=== PATIENT | female | born 1975 | race Two or more races ===

== ENCOUNTER 2023-02-15 21:37 | Emergency (ER) | payer OTHER, SELFPAY ==
[2023-02-15 21:42] VITALS: BP 167/90; PULSE 80; RESP 20; TEMP 37.1; O2SAT 99; BMI 29.3
[2023-02-15 22:00] LABS: Bilirubin Urine NEGATIVE (NEGATIVE); Blood Urine LARGE (NEGATIVE); Clarity Urine CLEAR (CLEAR); Color Urine RED (YELLOW); Glucose Urine UA NEGATIVE (NEGATIVE); Ketones Urine NEGATIVE (NEGATIVE); Leukocyte Esterase Urine NEGATIVE (NEGATIVE); Nitrite Urine NEGATIVE (NEGATIVE); Protein Urine 30 mg/dL (NEG/TRACE); Specific Gravity Urine 1.015 (1.005-1.025); Urobilinogen Urine 0.2 EU/dL (0.2-1.0)
[2023-02-15 22:01] LABS: Urine Microscopic Indicated YES
[2023-02-15 22:06] LABS: Bacteria Urine NONE SEEN #/HPF (NONE SEEN); Cast Seen? NONE SEEN #/LPF (NONE SEEN); Crystals Seen? None Seen #/HPF (None Seen); Mucus Urine NONE SEEN (NONE SEEN); RBC Urine >100 #/HPF (0-2); Squamous Epithelial Cell Urine NONE SEEN #/LPF (NONE/RARE); Urine Culture Indicated NO; WBC Urine 0-2 #/HPF (NONE SEEN)
--- NOTE | 2023-02-15 22:13 | CT_ITS ---
[facility] [id number] Patient Name: CHANEL LERNER MRN: [id number] date: 1975 Sex: F Assigned Patient Location: ER Current Patient Location: ER Accession/Order Number: [id number] Exam Date: 02/15/2023 22:24 Report Date: 02/15/2023 22:52 At the request of: LUCINA ASENCIO Procedure: CT abdomen pelvis wo con EXAMINATION: CT ABDOMEN AND PELVIS WITHOUT IV CONTRAST CLINICAL HISTORY: Right flank pain and hematuria TECHNIQUE: Non-IV contrast imaging of the abdomen and pelvis was performed using standard technique, scanning from just above the dome of the diaphragm to the symphysis pubis. Unenhanced imaging is limited for the evaluation of some intra-abdominal and pelvic pathology. All CT scans at this facility use dose modulation, iterative reconstruction, and/or weight based dosing when appropriate to reduce radiation dose to as low as reasonably achievable. Contrast: IV: None COMPARISON: None. RESULT: Abdomen / Pelvis: Liver: Unremarkable. Biliary: The gallbladder is unremarkable. Spleen: No splenomegaly. Pancreas: Unremarkable. Adrenals: Normal. Kidneys: 8mm proximal right ureteral obstructing calculus with mild hydronephrosis. Several other bilateral nonobstructing renal calculi, measuring up to 6 mm. GI Tract: No bowel dilation. Normal appendix. There is diverticulosis. No changes of diverticulitis. Lymph Nodes: No lymphadenopathy. Mesentery/peritoneum: No ascites. Retroperitoneum: No mass. Vasculature: No abdominal aortic or iliac artery aneurysm. Pelvis: No mass or ascites. Urinary bladder is unremarkable. Bones/Soft Tissues: Prior postoperative changes hernia repair. Lower thorax: Unremarkable. CT/CT abdomen pelvis wo con IMPRESSION: 8 mm proximal right ureteral obstructing calculus with mild hydronephrosis. Multiple other bilateral nonobstructing renal calculi. Electronically authenticated by: LEANDRO LIAO Date: 02/15/2023 22:52
[2023-02-15] MEDS: 0.9 % SODIUM CHLORIDE 1,000 ML 999 ML IV (22:53)
[2023-02-15] MEDS: KETOROLAC TROMETHAMINE 30 MG/ML VIAL IVP (22:54)
[2023-02-15] MEDS: ORPHENADRINE 60 MG/ 2 ML VIAL IV (22:54)
[2023-02-15 23:12] LABS: Anion Gap 9.9; Calcium 9.7 mg/dL (8.5-10.1); Carbon Dioxide 28.2 mmol/L (21.0-32.0); Chloride 105 mmol/L (98-107); Estimated GFR (African America >60 (>=60); Estimated GFR (Non-African Ame >60 (>=60); Glucose 116 mg/dL (74-106); Potassium 4.1 mmol/L (3.5-5.1); Sodium 139 mmol/L (136-145)
[2023-02-15 23:16] LABS: Basophils Absolute Auto 0.1 10^3/uL (0.0-0.1); Basophils Percent Auto 0.7 % (0.2-2.0); Eosinophils Absolute Auto 0.2 10^3/uL (0.0-0.7); Eosinophils Percent Auto 2.4 % (0.9-7.0); Hematocrit 38.8 % (36.0-48.0); Hemoglobin 13.1 g/dL (12.0-16.0); Immature Granulocytes Abs Auto 0.03 10^3/uL (0.00-0.03); Immature Granulocytes Pct Auto 0.4 % (0.0-0.5); Lymphocytes Absolute Auto 1.2 10^3/uL (1.2-3.8); Lymphocytes Percent Auto 15.9 % (20.5-60.0); Mean Corpuscular HGB Conc 33.8 g/dL (29.9-35.2); Mean Corpuscular Hemoglobin 31.1 pg (26.7-34.0); Mean Corpuscular Volume 92.2 fL (81.0-99.0); Mean Platelet Volume 11.3 fL (9.5-13.5); Monocytes Absolute Auto 0.6 10^3/uL (0.3-0.8); Monocytes Percent Auto 8.4 % (1.7-12.0); Neutrophils Absolute Auto 5.4 10^3/uL (1.4-6.5); Neutrophils Percent Auto 72.2 % (43.0-75.0); Platelet Count 208 10^3/uL (150-450); Red Blood Count 4.21 10^6/uL (4.20-5.40); Red Cell Distribution Width 12.2 % (11.0-15.0); White Blood Count 7.5 10^3/uL (4.0-11.0)
--- NOTE | 2023-02-15 23:38 | ED.FEMALEGU1 ---
HPI - Female Genitourinary General Chief complaint: Urogenital-Female Stated complaint: FLANK PAIN Time Seen by Provider: 02/15/23 21:46 Source: patient Mode of arrival: walk-in Limitations: no limitations History of Present Illness HPI Narrative: past history of kidney stones. presents with right CVA pain for past 3 days. mild nausea. No fever or dysuria. Pain not relieved with motrin. Related Data Home Medications Medication Instructions Recorded Confirmed No Known Home Medications 02/15/23 02/15/23 Allergies Allergy/AdvReac Type Severity Reaction Status Date / Time No Known Drug Allergies Allergy Verified 02/15/23 21:46 Review of Systems ROS Status of ROS 10 or more systems reviewed and unremarkable except as noted in history and below [facility] Social History Smoking status: Never smoker Exam Constitutional Vital Signs, click to edit/add: Last Vital Signs Temp 98.7 F 02/15/23 21:42 Pulse 80 02/15/23 21:42 Resp 20 02/15/23 21:42 BP 167/90 H 02/15/23 21:42 Pulse Ox 99 02/15/23 21:42 O2 Del Method Room Air 02/15/23 21:42 Common normals: no apparent distress, average body habitus, oriented x3, no limitations, healthy appearing and alert Eye Common normals: EOMs intact bilaterally and conjunctivae normal Respiratory Common normals: normal respiratory effort, no retractions, no use of accessory muscles and clear to auscultation bilaterally Cardio Common normals: regular rate, regular rhythm, S1 normal heart sound and S2 normal heart sound GI Common normals: Normal to inspection, nondistended, normoactive bowel sounds present, soft to palpation and non-tender Back & Pelvis Other: right CVA tenderness Extremity Common normals: normal to inspection Neuro Common normals: oriented x3, CN's II-XII intact bilaterally, moves all extremities and no focal motor deficits Psych Appearance: grossly normal Course Vital Signs Vital signs: Vital Signs Temperature 98.7 F 02/15/23 21:42 Pulse Rate 80 02/15/23 21:42 Respiratory Rate 20 02/15/23 21:42 Blood Pressure 167/90 H 02/15/23 21:42 Pulse Oximetry 99 02/15/23 21:42 Oxygen Delivery Method Room Air 02/15/23 21:42 Temperature 98.7 F 02/15/23 21:42 Pulse Rate 80 02/15/23 21:42 Respiratory Rate 20 02/15/23 21:42 Blood Pressure 167/90 H 02/15/23 21:42 Pulse Oximetry 99 02/15/23 21:42 Oxygen Delivery Method Room Air 02/15/23 21:42 MDM - Female Genitourinary MDM Narrative Medical decision making narrative: presents with right CVA pain for past 3 days. found to have proximal 8mm stone. urine with hematuria, no infection. Pain controlled with Toradol and Norflex. Given dose of flomax and discharged home to follow up with urology Lab Data Labs: Lab Results 02/15/23 02/15/23 Range/Units 21:50 22:40 WBC 7.5 (4.0-11.0) 10^3/uL RBC 4.21 (4.20-5.40) 10^6/uL Hgb 13.1 (12.0-16.0) g/dL Hct 38.8 (36.0-48.0) % MCV 92.2 (81.0-99.0) fL MCH 31.1 (26.7-34.0) pg MCHC 33.8 (29.9-35.2) g/dL RDW 12.2 (11.0-15.0) % Plt Count 208 (150-450) 10^3/uL MPV 11.3 (9.5-13.5) fL Neut % (Auto) 72.2 (43.0-75.0) % Lymph % (Auto) 15.9 L (20.5-60.0) % [place] % (Auto) 8.4 (1.7-12.0) % Eos % (Auto) 2.4 (0.9-7.0) % Baso % (Auto) 0.7 (0.2-2.0) % Neut # (Auto) 5.4 (1.4-6.5) 10^3/uL Lymph # (Auto) 1.2 (1.2-3.8) 10^3/uL [place] # (Auto) 0.6 (0.3-0.8) 10^3/uL Eos # (Auto) 0.2 (0.0-0.7) 10^3/uL Baso # (Auto) 0.1 (0.0-0.1) 10^3/uL Abs Immat Gran (auto) 0.03 (0.00-0.03) 10^3/uL Imm/Tot Granulo (auto) 0.4 (0.0-0.5) % Sodium 139 (136-145) mmol/L Potassium 4.1 (3.5-5.1) mmol/L Chloride 105 (98-107) mmol/L Carbon Dioxide 28.2 (21.0-32.0) mmol/L Anion Gap 9.9 BUN 17.0 (7.0-18.0) mg/dL Creatinine 0.85 (0.55-1.02) mg/dL Est GFR ( Amer) >60 (>=60) Est GFR (Non-Af Amer) >60 (>=60) BUN/Creatinine Ratio 20.0 Glucose 116 H (74-106) mg/dL Calcium 9.7 (8.5-10.1) mg/dL Urine Color Red A (YELLOW) Urine Clarity Clear (CLEAR) Urine pH 7.0 (5.0-9.0) Ur Specific [place] 1.015 (1.005-1.025) Urine Protein 30 A (NEG/TRACE) mg/dL Urine Glucose (UA) Negative (NEGATIVE) mg/dL Urine Ketones Negative (NEGATIVE) mg/dL Urine Occult Blood Large A (NEGATIVE) Urine Nitrite Negative (NEGATIVE) Urine Bilirubin Negative (NEGATIVE) Urine Urobilinogen 0.2 (0.2-1.0) EU/dL Ur Leukocyte Esterase Negative (NEGATIVE) Urine RBC >100 A (0-2) #/HPF Urine WBC 0-2 A (NONE SEEN) #/HPF Ur Squamous Epith Cells None seen (NONE/RARE) #/LPF Urine Crystals None seen (None Seen) #/HPF Urine Bacteria None seen (NONE SEEN) #/HPF Urine Casts None seen (NONE SEEN) #/LPF Urine Mucus None seen (NONE SEEN) Ur Culture Indicated? No Imaging Data CT scan - abdomen: Radiologist's impression: At the request of: LUCINA ASENCIO Procedure: CT abdomen pelvis wo con EXAMINATION: CT ABDOMEN AND PELVIS WITHOUT IV CONTRAST CLINICAL HISTORY: Right flank pain and hematuria TECHNIQUE: Non-IV contrast imaging of the abdomen and pelvis was performed using standard technique, scanning from just above the dome of the diaphragm to the symphysis pubis. Unenhanced imaging is limited for the evaluation of some intra-abdominal and pelvic pathology. All CT scans at this facility use dose modulation, iterative reconstruction, and/or weight based dosing when appropriate to reduce radiation dose to as low as reasonably achievable. Contrast: IV: None COMPARISON: None. RESULT: Abdomen / Pelvis: Liver: Unremarkable. Biliary: The gallbladder is unremarkable. Spleen: No splenomegaly. Pancreas: Unremarkable. Adrenals: Normal. Kidneys: 8mm proximal right ureteral obstructing calculus with mild hydronephrosis. Several other bilateral nonobstructing renal calculi, measuring up to 6 mm. GI Tract: No bowel dilation. Normal appendix. There is diverticulosis. No changes of diverticulitis. Lymph Nodes: No lymphadenopathy. Mesentery/peritoneum: No ascites. Retroperitoneum: No mass. Vasculature: No abdominal aortic or iliac artery aneurysm. Pelvis: No mass or ascites. Urinary bladder is unremarkable. Bones/Soft Tissues: Prior postoperative changes hernia repair. Lower thorax: Unremarkable. CT/CT abdomen pelvis wo con IMPRESSION: 8 mm proximal right ureteral obstructing calculus with mild hydronephrosis. Multiple other bilateral nonobstructing renal calculi. Discharge Plan Discharge Chief Complaint: Urogenital-Female Clinical Impression: Kidney stone Prescriptions / Home Meds: No Action No Known Home Medications Instructions: Kidney Stones (ED) Additional Instructions: drink plenty of fluids. Follow up with your urologist in the next few days. Return if fever or pain not controlled Referrals: Alfredo Perrin MD [Primary Care Provider] - 1 week
[2023-02-16] MEDS: KETOROLAC TROMETHAMINE 10 MG TABLET PO (00:13)
[2023-02-16] MEDS: TAMSULOSIN HCL 0.4 MG CAPSULE PO (00:13)
== END 2023-02-16 00:31 | disposition home or self-care (01) ==
PROVIDERS: Emergency Provider Internal Medicine; PCP Family Medicine
DX: N13.2 Hydronephrosis with renal and ureteral calculous obstruction (principal); Z87.442 Personal history of urinary calculi
CPT/HCPCS: 36415; 74176; 80048; 81001; 85025; 96374; 96375; 99284

== ENCOUNTER 2023-11-15 07:34 | Outpatient (OUT) | payer OTHER, SELFPAY ==
--- OUTSIDE RECORDS SUMMARY | 2023-11-15 07:36 | XMS_ITS | CCD ---
Author Organization [facility] Care Team Providers Care Technician Test Systems Name Role Phone Dion Aguilar Unavailable Unavailable Dion Aguilar Unavailable Unavailable Dion Aguilar Unavailable Unavailable NONE, XXXX Unavailable Unavailable AIDA, DR BETANCOURT Attending Unavailable JOÃOY, DR BETANCOURT Consulting Unavailable JOÃOY, DR BETANCOURT Primary Care Unavailable HOY, DR BETANCOURT Admitting Unavailable HOY, DR BETANCOURT Consulting Unavailable AIDA, DR BETANCOURT Primary Care Unavailable JOÃOY, DR BETANCOURT Admitting Unavailable AIDA, DR BETANCOURT Attending Unavailable AIDA, DR BETANCOURT Consulting Unavailable AIDA, DR BETANCOURT Primary Care Unavailable HOY, DR BETANCOURT Admitting Unavailable AIDA, DR BETANCOURT Attending Unavailable Asia Perrin MD Primary Care Provider [phone] ASHUTOSH HARVEY Admitting Unavailable ASHUTOSH HARVEY Attending Unavailable ASHUTOSH HARVEY Referring Unavailable ASIA PERRIN Primary Care Unavailable ASHUTOSH HARVEY Attending Unavailable ASHUTOSH HARVEY Referring Unavailable ASIA PERRIN Primary Care Unavailable CEHR CALDERON Attending Unavailable ASIA PERRIN Primary Care Unavailable Allergies Allergy Classification Reported Allergen(s) Allergy Type Date of Onset Reaction(s) Facility (1 source) No Known Medication Allergies; Translations: [No Known Medication Allergies] Propensity to adverse reactions (disorder) [facility] Repository Medications Current Medications Medication Drug Class(es) Dates Sig (Normalized) Sig (Original) acetaminophen 325 mg / HYDROcodone bitartrate 5 mg oral tablet (4 sources) Opioid Agonist Start: 02-17-2023 HYDROcodone-acetami nophen (NORCO) 5-325 mg per tablet Indications: Kidney stone Take 1 tablet by mouth every 6 (six) hours as needed for pain for up to 20 doses. Max Daily Amount: 4 tablets 20 tablet 0 02/17/2023 Active ketorolac tromethamine 10 mg oral tablet (4 sources) Nonsteroidal Anti-inflammatory Drug, Cyclooxygenase Inhibitor Start: 02-16-2023 take 1 tablet by mouth every six hours as needed for pain ketorolac (TORADOL) 10 mg tablet Take 1 tablet (10 mg total) by mouth every 6 (six) hours as needed for pain. 0 02/16/2023 Active ondansetron 4 mg disintegrating oral tablet (4 sources) Serotonin-3 Receptor Antagonist Start: 02-17-2023 ondansetron ODT (ZOFRAN ODT) 4 mg disintegrating tablet Indications: Kidney stone Dissolve 1 tablet (4 mg total) on tongue every 8 (eight) hours as needed for nausea or vomiting. 20 tablet 0 02/17/2023 Active tamsulosin hydrochloride 0.4 mg oral capsule (4 sources) alpha-Adrenergic Zana Start: 02-17-2023 End: 03-19-2023 take 1 capsule by mouth once daily tamsulosin (FLOMAX) 0.4 mg capsule Indications: Kidney stone TAKE 1 CAPSULE BY MOUTH NIGHTLY FOR 30 DAYS. 30 capsule 0 03/17/2023 Active Problems Active Problems Problem Classification Problem Date Documented Da te Episodic/Chronic Unclassified (3 sources) CONTACT W/AND (SUSP) EXPOS COVID-19; Translations: [CONTACT W/AND (SUSP) EXPOS COVID-19] Onset: 01-01-2021 Viral infection (1 source) COVID-19; Translations: [COVID-19] Onset: 10-15-2021 Past or Other Problems Problem Classification Problem Date Documented Da te Episodic/Chronic Calculus of urinary tract (7 sources) Kidney stone; Translations: [Calculus of kidney] Onset: 08-18-2020 03-01-2023 Episodic Other upper respiratory infections (1 source) Acute recurrent frontal sinusitis; Translations: [ACUTE RECURRENT FRONTAL SINUSITIS] Onset: 03-19-2021 Episodic Unclassified (1 source) CONTACT W/AND (SUSP) EXPOS COVID-19; Translations: [CONTACT W/AND (SUSP) EXPOS COVID-19] Onset: 10-14-2021 Results Test Name Value Interpretation Reference Range Facility FL FLUOROSCOPY UP TO 1 HOURo n 03-17-2023 FL FLUOROSCOPY UP TO 1 HOUR FL FLUOROSCOPY UP TO 1 HOUR History: Nephrolithiasis. Right ureteroscopy, laser lithotripsy and ureteral stent insertion Exam/Technique: This dictation is to confirm the use of intraoperative fluoroscopy by the primary service. Total fluoro time: 11 seconds , 4.6 mGy air Kerma radiation dose and 4 images No radiologist was present during the procedure. IMPRESSION: Please refer to the operative note for clinical correlation. Finalized by Kassidy Phillips MD on 03/17/2023 4:17 PM Normal [facility] URINE CULTUREon 02-17-2023 Bacteria identified Cx Nom (U) CULTURE RESULTS >100,000 ORGANISMS/ML NORMAL UROGENITAL ARINA Normal [facility] Comment on above: Performed By: #### 6 30-4 #### [facility] ([id number]) [address] [place] [address] [address] [place] [address] Covid-19 PCR (CVDTBH)on 10-04 SARS-CoV-2 (COVID-19) RNA JAVIER+probe Ql (Unsp spec) Detected Critically abnormal NOT DETECTED The [facility] Comment on above: Result Comment: This test is not yet approved or cleared by the [place] FDA. When there are no FDA-approved or cleared tests available, and other criteria are met, FDA can make tests available under an emergency access mechanism called an Emergency Use Authorization (EUA). The EUA for this test is supported by the [place] of Health and Human Service's (HHS's) declaration that circumstances exist to justify the emergency use of in vitro diagnostics for the detection and/or diagnosis of the virus that causes COVID-19. This EUA will remain in effect (meaning this test can be used) for the duration of the COVID-19 declaration justifying emergency of IVDs, unless it is terminated or revoked by FDA (after which the test may no longer be used). Performed By: #### C VDTBH #### [facility] [address] [place] [address] Dr. Masha Ye Covid-19 PCR (CVDTBH)on 03-06 SARS-CoV-2 (COVID-19) RNA JAVIER+probe Ql (Unsp spec) Detected Critically abnormal NOT DETECTED The [facility] Comment on above: Result Comment: This test is not yet approved or cleared by the [place] FDA. When there are no FDA-approved or cleared tests available, and other criteria are met, FDA can make tests available under an emergency access mechanism called an Emergency Use Authorization (EUA). The EUA for this test is supported by the [employer] of Health and Human Service's (HHS's) declaration that circumstances exist to justify the emergency use of in vitro diagnostics for the detection and/or diagnosis of the virus that causes COVID-19. This EUA will remain in effect (meaning this test can be used) for the duration of the COVID-19 declaration justifying emergency of IVDs, unless it is terminated or revoked by FDA (after which the test may no longer be used). Performed By: #### C VDTBH #### [facility] [address] [place] [address] Dr. Masha Ye INFLUENZA A AND B AGon 03-17 INFLUENZA A AG Negative Normal NEGATIVE SEE COMMENT [facility] Comment on above: Performed By: #### I NFLUAB #### [facility] [address] [place] [address] Dr. Masha Ye INFLUENZA B AG Negative Normal NEGATIVE SEE COMMENT [facility] Comment on above: Performed By: #### I NFLUAB #### [facility] [address] [place] [address] Dr. Masha Ye INTERNAL CONTROLS Within Normal Limits Normal Wi thin Normal Limits [facility] Comment on above: Performed By: #### I NFLUAB #### [facility] [address] [place] [address] Dr. Masha Ye Covid-19 PCR ([facility])on 12-05 SARS-CoV-2 (COVID-19) RNA JAVIER+probe Ql (Unsp spec) Not detected Normal NOT DETECTED [facility] Comment on above: Result Comment: This test is not yet approved or cleared by the [place] FDA. When there are no FDA-approved or cleared tests available, and other criteria are met, FDA can make tests available under an emergency access mechanism called an Emergency Use Authorization (EUA). The EUA for this test is supported by the [employer] of Health and Human Service's (HHS's) declaration that circumstances exist to justify the emergency use of in vitro diagnostics for the detection and/or diagnosis of the virus that causes COVID-19. This EUA will remain in effect (meaning this test can be used) for the duration of the COVID-19 declaration justifying emergency of IVDs, unless it is terminated or revoked by FDA (after which the test may no longer be used). When diagnostic testing is negative, the possibility of a false negative should be considered in the context of a patient's recent exposures and the presence of clinical signs and symptoms consistent with SARS-CoV-2. Performed By: #### C VDTB #### [facility] [address] [place] [address] Dr. Masha Ye SYMPTOMATIC COVID-19 ANTIGEN on 12-28-2020 EUA Statement SEE BELOW Normal [facility] Comment on above: Result Comment: This test has not been FDA cleared or approved, but has been authorized by the FDA under an Emergency Use Authorization (EUA) for use by authorized laboratories certified under CLIA that meet the requirements to perform moderate or high complexity testing. This test has been authorized only for the detection of proteins from SARS-CoV-2, not for any other viruses or pathogens. The emergency use of this test is authorized for the duration of the declaration that circumstances exist justifying the authorization of emergency use of in vitro diagnostic tests for detection and/or diagnosis of Covid-19 under section 564(b)(1) of the Act, 21 U.S.C. 360bbb-3(b)(1), unless the declaration is terminated or authorization is revoked sooner. Performed By: #### C VDAGS #### [facility] [address] [place], [place] [id number] Dr. Masha Ye SARS-CoV-2 (COVID-19) RNA JAVIER+probe Ql (Unsp spec) Negative Normal NEGATIVE [facility] Comment on above: Result Comment: CONF IRMATION BY PCR PENDING PER CDC GUIDELINES/ SYMPTOMATIC PATIENT. Performed By: #### C VDAGS #### [facility] [address] [place], [place] [id number] Dr. Masha Ye Coding Summary.on 02-01-2017 Coding Summary. CODING DATE: 02/01/2017 FINAL [facility] STATUS: Home (Routine DC) PAYOR: Self Pay APC DESCRIPTION 5373 Level 3 Urology and Related Services ADMIT DX: REASON FOR VISIT DX: Z46.6 Encounter for fitting and adjustment of urinary device FINAL DX: PRINCIPAL: Z46.6 Encounter for fitting and adjustment of urinary device SECONDARY: Z87.442 Personal history of urinary calculi PYMT PROC APC STAT DESCRIPTION DOCTOR NAME DATE NOTE: The code number assigned matches the documented diagnosis and / or procedure in the patient's chart. However, the narrative phrase printed from the coding software may appear abbreviated, or result in slightly different terminology. Coded By: Radha Jacobs Date Saved: 02/01/2017 04:42 pm Normal [facility] Main OR Intraoperative Recor don 01-31-2017 Main OR Intraoperative Record IntraOp Document Type FTURO Summary Primary Physician: Dion Aguilar MD Finalized Date/Time: 01/31/17 16:44:48 Pt. Name: CHANEL HOPKINS Johan /Sex: 1975 Female Med Rec #: [id number] Physician: Dion Aguilar MD Financial #: [id number] Pt. Type: O Room/Bed: / Admit/Disch: 01/31/17 15:23:26 - Institution: Case Times FTURO Entry 1 Patient Times In Room 01/31/17 16:36:00 Out Room 01/31/17 16:50:00 Procedure Times Start 01/31/17 16:41:00 Stop 01/31/17 16:45:00 Anesthesia Times Last Modified By: Mavis RODRIGUEZ, Lydia WARNER 01/31/17 16:44:42 Case Attendance FTURO Entry 1 Entry 2 Entry 3 Case Attendee Mavis RODRIGUEZ, ROLANDOR, [facility], Angie Aguilar MD, Dion Freeman Role Performed Road Boss - Primary Scrub - Primary Surgeon - Primary Time In 01/31/17 16:36:00 01/31/17 16:36:00 01/31/17 16:36:00 Time Out 01/31/17 16:50:00 01/31/17 16:50:00 01/31/17 16:50:00 Procedure CYSTOSCOPY LOCAL WITH CYSTOSCOPY LOCAL WITH CYSTOSCOPY LOCAL WITH STENT REMOVAL(Right) STENT REMOVAL(Right) STENT REMOVAL(Right) Comments Last Modified By: Mavis RODRIGUEZ, CNOR, Mavis RODRIGUEZ, ROLANDOR, Mavis RODRIGUEZ, ROLANDOR, Lydia 01/31/17 Lydia 01/31/17 Lydia 01/31/17 16:44:43 16:44:43 16:44:43 Surgical Procedures FTURO Entry 1 Procedure Description Procedure CYSTOSCOPY LOCAL WITH Modifiers Right STENT REMOVAL Surgeon Description CYSTO RIGHT STENT REMOVAL Primary Procedure Yes Primary Surgeon Lauren DONIS, Dion Mace Start 01/31/17 16:41:00 Stop 01/31/17 16:45:00 Anesthesia Type Local Surgical Service Urology Wound Class 2 - Clean-Contaminated Last Modified By: ALANA Gamble RN, Lydia 01/31/17 16:44:46 General Case Data FTURO Pre-Care Text: Classifies surgical wound, implements aseptic technique, initiates traffic control Entry 1 Case Information OR URO 1 FT Case Level None Wound Class 2 - Clean-Contaminated Specialty Urology Preop Diagnosis STATUS POST RIGHT STENT Postop Same As Preop Yes PLACEMENT Postop Diagnosis STATUS POST RIGHT STENT Outcomes Met? Yes PLACEMENT Last Modified By: Mavis RODRIGUEZ, ROLANDOR, Lydia 01/31/17 12:03:56 Post-Care Text: The patient is free from signs and symptoms of infection EU IntraOp - FTURO Pre-Care Text: Implements protective measures prior to operative or invasive procedure, confirms identity before the operative or invasive procedure, verifies operative procedure, surgical site, and laterality Entry 1 EU Perioperative Protocols Procedure(s) CYSTOSCOPY LOCAL WITH Patient Identity Birthday, ID Band STENT REMOVAL(Right) Verified (select at Check, Patient least 2): Participation Consents / H and P HandP, Surgery/Procedure Operative Site N/A Verified Consent Marking Verified Surgical Site Yes Laterality Verified n/a Verified Procedure Verified Yes Correct Patient Yes Position Verified Availability Equipment Time Out Mavis RODRIGUEZ, ROLANDOR, Verified (If Participants Jacobo Freeman CST, Applicable) Lauren Jacinto MD, Dion Mace Time Out Complete 01/31/17 16:40:00 Allergies Reviewed? Yes Allergies Reviewed Self/Patient With Body Position Low Lithotomy Prep Area perineal area Prep Agents Betadine Solution Skin. Condition Intact Additional None Specimens Collected Vitals - EU Blood Pressure Pulse Respirations SPO2 EBL 0 IandO - EU Total Intake 0 Total Output 0 Outcomes Met? Yes Last Modified By: ALANA Gamble RN, Ruthann 01/31/17 16:41:40 Post-Care Text: The patient is free from signs and symptoms of injury caused by extraneous objects General Comments: stent removed Case Comments Finalized By: ALANA Gamble RN, Ruthann Document Signatures Signed By: ALANA Gamble RN, Ruthann 01/31/17 16:44 Normal [facility] Main OR Preoperative Recordo n 01-31-2017 Main OR Preoperative Record Holding Area Document Type FTURO Summary Primary Physician: Dion Aguilar MD Finalized Date/Time: 01/31/17 16:43:04 Pt. Name: CHANEL HOPKINS Johan Sparks/Sex: 1975 Female Med Rec #: [id number] Physician: Dion Aguilar MD Financial #: [id number] Pt. Type: O Room/Bed: / Admit/Disch: 01/31/17 15:23:26 - Institution: Case Times Holding FTURO Pre-Care Text: Verifies consent for planned procedure, identifies individual values and wishes concerning care, includes family members in perioperative teaching Secures patient's records' belongings, and valuables, maintains patient's dignity and privacy, and maintains patient confidentiality Entry 1 In Holding 01/31/17 15:46:00 Outcomes Met? Yes Last Modified By: Salima Villegas 01/31/17 15:46:22 Post-Care Text: The patient participates in decisions affecting his or her perioperative plan of care The patient's right to privacy is maintained Surgery Checklist FTURO Entry 1 Patient Birthday, ID Band Procedure History and Physical, Identification: Check, Patient Verification: Surgical Consent, With Participation Patient Date/Time: 01/31/17 15:46:00 Personal Items: Glasses, Jewelry Personal Items Earring, Wedding ringk, Complaints of Pain: Yes Comment: nose ring Pain Comment: Started Menses (4) Skin Integrity Intact, Newman, Warm, & Dry Vitals - EU Blood Pressure 118/78 Pulse 80 bpm Respirations 16 br/min SPO2 Additional None RN Reviewed Yes Specimens Collected Last Modified By: ALANA Gamble RN, Ruthann 01/31/17 16:43:03 Finalized By: ALANA Gamble RN, Ruthann Document Signatures Signed By: Salima Villegas 01/31/17 15:48 Mavis RODRIGUEZ, Lydia WARNER 01/31/17 16:43 Normal [facility] Operative Reporton Operative Report Patient: CHANEL HOPKINS Age: 41 years Sex: Female : 1975 Associated Diagnoses: None Author: Dion Aguilar MD Procedure Operative Information Details: Date/ Time: 01/31/17 16:47:00. Pre-Op Dx: Foreign Body in Bladder - T19.1XXA. Post-Op Dx: Same. Anesthesia Type: Local. Procedure: Local Cystoscopy with Stent Removal. Complications: None. Risks/Benefits/Infor med Consent: Surgical risks, benefits, details of the procedure have been explained to the patient, Full informed consent has been obtained. Intraoperative Information Prepped: The patient was placed in a modified dorso-lithotomy position, The patient was prepped with the Betadine solution. Anesthesia: 2% Xylocaine Jelly per urethra. Procedure: Cystoscopy and Right Stent Removal, The flexible Cystoscope was passed in retrograde fashion into the bladder without difficulty, The bladder was viewed in entirety and found to be without tumors or stones, Mild inflammation was seen surrounding the orifice with the stent seen protruding from it, The stent was then grasped and removed in its entirety. Specimens Removed: None. Devices Implanted: None. Postoperative Information Discharge: The patient tolerated the procedure well and was subsequently discharged home. plan for a stone metabolic w/u and 3 month f/u. Normal [facility] Comment on above: Result Comment: Elec tronically Signed By: Dion Aguilar MD\.br\Date and Time Signed: 01/31/17 16:48 EST Encounters Encounter Date Encounter Type Care Provider Facility Start: 06-08-2023 Telephone encounter [facility] Start: 03-23-2023 Telephone encounter Guillermina Corado CMA [facility] Start: 03-18-2023 End: 03-18-2023 Evaluation and management of inpatient [facility] Start: 03-17-2023 End: 03-18-2023 ambulatory ASHUTOSH HARVEY [facility] Start: 03-17-2023 End: 03-17-2023 Evaluation and management of inpatient ASHUTOSH HARVEY [facility] Start: 03-17-2023 Telephone encounter Ashutosh Harvey MD Work Phone: [facility] Start: 03-13-2023 End: 03-13-[address] [facility] Start: 03-13-2023 End: 03-13-2023 ambulatory [facility] Phone Call Provider 3 [facility] Start: 10-14-2021 End: 10-14-[address] ASIA PERRIN Facility:[facility] Start: 03-17-2021 End: 03-17-[address] ASIA PERRIN Facility:[facility] Start: 12-28-2020 End: 12-28-[address] ASIA PERRIN Facility:[facility] Start: 01-31-2017 End: 02-01-2017 Ambulatory Dion Aguilar Facility:[facility] Plan of Treatment Date Care Activity Detail Author Start: 03-17-2024 Adult BMI Screening Adult BMI Screen ing [facility] Start: 03-17-2024 Tobacco Screening Tobacco Screening [facility] Start: 02-18-2024 Adult BMI Screening Adult BMI Screen ing [facility] Start: 02-18-2024 Tobacco Screening Tobacco Screening [facility] Start: 11-05-2023 Influenza vaccination Influenza Vacc ine [facility] Start: 03-27-2023 End: 03-27-2023 ambulatory 03/27/2023 3:30 PM EST Support Visit [facility] [address] [place] [phone] [facility] Start: 03-17-2023 End: 03-17-2023 Admission to same day surgery center 03/17/2023 3:15 PM EST - 03/17/2023 4:30 PM EST Surgery [facility] A Division of [facility] - Surgery [address] [facility] [address] [place] [phone] Ashutosh Harvey MD [address] [place] [id number] LASER HOLMIUM URETEROSCOPY RENAL STONES < OR=1CM [14252 (CPT )] [facility] A Division [facility] Comment on above: LASER HOLMIUM URETER OSCOPY RENAL STONES < OR=1CM [86015 (CPT )] Start: 03-17-2023 End: 03-17-2023 Anesthesia consultation 03/17/2023 3:15 PM EST Anesthesia Event [facility] Surgery A Division [address] [place] [phone] Cher Calderon DO [address] [place] [address] [facility] Surgery A Division [facility] Start: 03-17-2023 End: 03-17-2023 Cysto w/insert ureteral stent CYSTOSCOPY INSERTION STENT URETER Kidney stone 03/17/2023 3:15 PM EST [facility] Start: 03-17-2023 End: 03-17-2023 Cysto w/ureteroscopy w/lithotripsy LASER HOLMIUM URETEROSCOPY RENAL STONES < OR=1CM Kidney stone 03/17/2023 3:15 PM EST [facility] Start: 03-17-2023 Subsequent hospital visit by physician 03/17/2023 3:15 PM EST Hospital Encounter [facility] Surgery A [address] [place] [phone] Ashutosh Harvey MD [address] [place] [id number] [facility] A [facility] Start: 11-04-2022 Influenza vaccination Influenza Vacc ine [facility] Start: 1997 Screening for malign ant neoplasm of cervix Pap Smear [facility] Start: 05-23-1995 DTaP,Tdap and Td Vaccines (1 - Tdap) DTaP,Tdap and Td Vaccines (1 - Tdap) [facility] Start: 1994 Adult BMI Follow Up Plan [facility] Start: 1988 Depression Screening [facility]ing [facility] End: 03-16-2024 Litholink 48 Hour [facility]ink 48 Hour Lab Routine Kidney stone 1 Occurrences starting 03/17/2023 until 03/16/2024 [email or web address] Work Phone: Comment on above: 1 Occurrences starti ng 03/17/2023 until 03/16/2024 Payers Date Payer Category Payer Private Health [facility] [id number] 2022-Present [phone] [address] [address] [place] [address] [id number] 2022 Unknown [id number] 2017 Self-pay 1975 Unknown [id number] 1975 Unknown [id number] 1975 Unknown [id number] 1975 Unknown [id number] 1975 Unknown [id number] 1975 Unknown [id number] 1975 Unknown [id number] 1959 Unknown [id number] Social History Date Type Detail Facility Start: 08-18-2020 Tobacco smoking stat us NHIS Never smoked tobacco [facility] Start: 08-18-2020 Tobacco use and exposure Smoke less tobacco non-user [facility] Start: 02-17-2023 End: 03-18-2023 Alcohol intake Current drinker of alcohol (finding) [facility] Start: 08-15-2018 End: 02-17-2023 History of Social function [facility] Start: 08-15-2018 End: 02-17-2023 Tobacco use panel [facility] Housing Instability Unknown [facility] Start: 1975 Sex Assigned At Not on file P [facility] Start: 03-17-2023 Alcohol Comment month [facility] Medical Equipment Procedure Code Equipment Code Equipment Origin al Text Equipment Identifier Dates Stent Uret 6fr 2 2cm 2 Pgtl Crv Rdpq Pstnr Brd Teth Rpl [id number] - [id number] Start: 03-17-2023 Clinical Notes 03-13-2023 to 06-08-2023 Telephone Encounter - Nicole Aviles - 06/08/2023 9:04 AM EDTTelephone Encounter - Nicole Aviles - 06/08/2023 9:04 AM EDTTelephone Encounter - Guillermina Corado [facility] - 03/23/2023 8:58 AM EST Note Date & Type Note Facility 06-08-2023 Miscellaneous Notes Called pt to r/s appt from 06/09/[address] Harvey, pt cancelled. LVM and asked her to call back at [phone] documented in this encounter [facility] 06-08-2023 Telephone encounter Note Called pt to r/s appt from 06/09/[address] Harvey, pt cancelled. LVM and asked her to call back at [phone] [facility] 03-23-2023 Miscellaneous Notes Pt was taking shower and her washcloth snagged her string/stent. She was doing ok, but now notices leakage and increase discomfort. Please advise. Pt states that plan was to remove it on Monday Dr Harvey had requested she be seen yesterday to have stent removed so I think it is ok to remove it if she can. Otherwise, she can come here to have it removed. I know she does not live close, maybe around [facility]. Pt will come to office , and I can remove. (Pt does not want to do it) Is Piper in the office today? Isn't she closer than us? I am not sure. Not overly familiar with the area documented in this encounter [facility] 03-23-2023 Telephone encounter Note Pt was taking shower and her washcloth snagged her string/stent. She was doing ok, but now notices leakage and increase discomfort. Please advise. Pt states that plan was to remove it on Monday [facility] 03-23-[address] Harvey had requested she be seen yesterday to have stent removed so I think it is ok to remove it if she can. Otherwise, she can come here to have it removed. I know she does not live close, maybe around [facility]. [facility] 03-23-2023 Telephone encounter Note Pt will come to office , and I can remove. (Pt does not want to do it) [facility] 03-23-2023 Telephone encounter Note Is Piper in the office today? Isn't she closer than us? I am not sure. Not overly familiar with the area [facility] 03-17-2023 Miscellaneous Notes Can you schedule her to get her stent out in the office next Monday Additionally should get information for litho link x2 and a follow-up to review those results in about 8-12 weeks Called pt and lvm to schedule in 8-12 weeks. I will fax a request to [employer] for her to get a kit. documented in this encounter [facility] 03-17-2023 Telephone encounter Note Can you schedule her to get her stent out in the office next Monday Additionally should get information for litho link x2 and a follow-up to review those results in about 8-12 weeks [facility] 03-17-2023 Telephone encounter Note Called pt and lvm to schedule in 8-12 weeks. I will fax a request to [facility] for her to get a kit. [facility] 01-08-2024 Instructions Formatting of th is note might be different from the original. Your Procedure/Surgery is scheduled at [facility] on 03/17/22 [facility], [address] [place] [address] You will receive a phone call from [facility] the day before your surgery to verify your arrival time. If you have any questions prior to your surgery, please call Pre-Admission Clinic at [phone] between 7:30 am and 4:30 pm Monday through Monday. For questions the day of surgery, please call the Pre-op Department at [phone]. IF YOU DO NOT FOLLOW THESE INSTRUCTIONS YOUR SURGERY MAY BE CANCELLED Take the following medications the morning of surgery with a sip of water: None Take inhalers as prescribed the morning of surgery. Notify your surgeon if you develop any illness such as a cold, cough, fever, sore throat or vomiting between now and your surgery. Your Surgeon wants you in the best possible health for your surgery. STOP TAKING: UNLESS OTHERWISE DIRECTED BY YOUR SURGEON Blood thinners: Medications such as Coumadin, Heparin, aspirin, Plavix, and non-steroidal anti-inflammatory drugs (NSAIDS) affect the body's blood clotting capabilities. These medications are usually stopped 3-7 days prior to surgery. Please contact your physician regarding a stop date for these medications. Diabetics: If you take insulin, contact your prescribing doctor for instructions on how to manage this the night before and the morning of surgery. Weight loss medications: Stop all weight loss medications at least 2 weeks prior to surgery. Vitamins: Stop taking all vitamins, supplements, and herbal products, including herbal tea, 1 week before your surgery. Some vitamins and herbal products may not react well with the medicine used to put you to sleep and/or may thin the blood. Marijuana: Stop marijuana 72 hours prior to surgery, stop CBD oil 48 hours prior to surgery. If you have been given bowel prep instructions by your surgeon, please call the surgeon's office with any questions about these instructions. What do I do the day of Surgery? Age 2 through adult - Stop all solids by midnight, You may have clear liquids up to 2 hours before surgery, unless otherwise instructed by your surgeon Clear liquids are: water, sports drinks such as Gatorade or G2, or apple juice. You may NOT have: tube feedings, dairy products, alcoholic beverages, orange juice, or any liquids with solids or pulp in it If applicable, shower again with CHG soap the morning of your surgery. If you received a green plastic bracelet, bring it with you the day of surgery and your nurse will put it on you. What do I need to do to prepare for surgery? If you will be going home the same day as your surgery, arrange for an adult over [address] Riding in a bus or taxi by yourself is not permitted. You should not smoke or drink alcohol 24 hours before your surgery. Alcohol thins the blood and may cause bleeding problems during surgery. Smoking increases the risk of breathing problems after surgery. If you have been given a prescription for occupational, physical or speech therapy, please set up these appointments before your procedure. If you would like to schedule therapy at a [facility] facility, please call [phone] ([phone]). Do not wear lotion, cream, powder, perfume, make up, cologne or after-shaves day of surgery. Remove ALL jewelry including wedding rings, body piercings,hair extensions that contain metal,make-up, and contact lens. You may brush your teeth the morning of surgery, but do not swallow the water. Wear your dentures and partial plates to the hospital (no adhesive). If applicable, the evening before surgery, shower with chlorhexidine gluconate (CHG soap). What should I bring to the hospital? If you received a green plastic bracelet, bring it with you the day of surgery and your nurse will put it on you. Eyeglass or contact lens case If you will be spending the night, please bring personal care items and leave them in the car until you are taken to your room after surgery. Leave ALL valuables at home. If any of these instructions conflict with those you recieved from the surgeon, please seek clarification from your surgeon's office. DEEP BREATHING EXERCISES This exercise helps promote good air exchange and helps to prevent pneumonia after surgery. Breathe in slowly and deeply through the nose. Hold your breath for a few seconds and then exhale slowly through the mouth. Repeat this three times and then cough.Coughing helps to clear your lungs. If you have had a surgery with an incision into your abdomen or chest, press gently against your incision with a pillow or a folded blanket when you cough. Please be aware - it may not be burt to cough following some types of surgeries involving the eyes, ears, sinuses and throat. Always follow your doctor's instructions. LEG EXERCISE These exercises help promote good circulation and help to prevent blood clots after surgery. Point your toes to the ceiling and then point them to the wall. Do this slowly about 15-20 times. You may also move your feet in circles. Do the exercise that is most comfortable for you. If you have had surgery involving your shoulder or arm, we recommend you move your fingers. PRACTICING We ask that you begin practicing these exercises before your surgery. After surgery try to do both exercises at least every 2 hours during the day and early evening. Surgical Site Infection Prevention What is a Surgical Site Infection? Infection can happen to the area of the body where surgery is done. This is called a surgical site infection (SSI). A SSI does not happen very often. Can SSIs be treated? Antibiotics are used to treat SSI. Some patients may need another surgery to treat the infection. The doctor will discuss treatment options with you. What are some of the things that hospitals are doing to prevent SSIs? Soap and water or alcohol hand rub are used before and after caring for each patient. Special soap is used to clean surgery workers hands and arms just before the surgery. Masks, gowns, gloves and hair covers are worn during the surgery to keep the area clean. Hair in the surgery area may be removed with clippers (not razors). A special soap that kills germs is used to clean the skin at the surgery site. Antibiotics may be given before the surgery starts. What can you do to prevent SSIs? Before surgery: You may be asked to shower or bathe with a special soap that kills germs the night before and the day of surgery. Use the soap as you were told. If you smoke, stop or cut down. Ask your doctor about ways to quit. Do not shave near where you will have surgery. Shaving can irritate the skin and make it easier to get and infection. After surgery: Be sure that the doctors and nurses clean their hands before and after touching you. Be sure your family and friends clean their hands before and after visiting you. Do not be afraid to remind them. * Care for your wound at home as told by your doctor or nurse * Call your doctor right away if you have fever, redness, increased pain, or drainage at the surgery site. Further questions? Contact the doctor, nurse or the Infection Prevention and Control department if you have any questions. PATIENT RIGHTS AND RESPONSIBILITIES As a patient at [facility], you have the right to: Receive medical care and be informed of who is taking care of you Be treated with dignity and respect Have a family member/account development representative of choice and your physician notified of your admission Receive information and actively participate in decisions about your care and treatment Refuse care, treatment and services Decide who may provide your support and speak for you Access mu-ism and spiritual services Participate in ethical issues and questions about your care Receive private and confidential care Have appropriate assessment and management of your pain Know guest visitation restrictions or limitations Have an advance directive Access protective services Consent or refuse to participate in research studies or production or recordings, films or other images Have resolution of your complaints Receive information of hospital charges and payment methods Patient/patient account development representative responsibilities are to: Provide information about health status to facilitate care, treatment and services Follow the treatment, plan, keep appointments and speak up when you do not understand the plan Respect the rights of other patients and healthcare personnel Follow organizational rules and regulations that support quality care and a safe environment Fulfill financial obligations as promptly as possible [facility] 03-13-2023 Miscellaneous Notes Your Procedure/Surgery is scheduled at [facility] on 03/17/22 [place] [id number] You will receive a phone call from [facility] the day before your surgery to verify your arrival time. If you have any questions prior to your surgery, please call Pre-Admission Clinic at [phone] between 7:30 am and 4:30 pm Monday through Monday. For questions the day of surgery, please call the Pre-op Department at [phone]. IF YOU DO NOT FOLLOW THESE INSTRUCTIONS YOUR SURGERY MAY BE CANCELLED Take the following medications the morning of surgery with a sip of water: None Take inhalers as prescribed the morning of surgery. Notify your surgeon if you develop any illness such as a cold, cough, fever, sore throat or vomiting between now and your surgery. Your Surgeon wants you in the best possible health for your surgery. STOP TAKING: UNLESS OTHERWISE DIRECTED BY YOUR SURGEON Blood thinners: Medications such as Coumadin, Heparin, aspirin, Plavix, and non-steroidal anti-inflammatory drugs (NSAIDS) affect the body's blood clotting capabilities. These medications are usually stopped 3-7 days prior to surgery. Please contact your physician regarding a stop date for these medications. Diabetics: If you take insulin, contact your prescribing doctor for instructions on how to manage this the night before and the morning of surgery. Weight loss medications: Stop all weight loss medications at least 2 weeks prior to surgery. Vitamins: Stop taking all vitamins, supplements, and herbal products, including herbal tea, 1 week before your surgery. Some vitamins and herbal products may not react well with the medicine used to put you to sleep and/or may thin the blood. Marijuana: Stop marijuana 72 hours prior to surgery, stop CBD oil 48 hours prior to surgery. If you have been given bowel prep instructions by your surgeon, please call the surgeon's office with any questions about these instructions. What do I do the day of Surgery? Age 2 through adult - Stop all solids by midnight, You may have clear liquids up to 2 hours before surgery, unless otherwise instructed by your surgeon Clear liquids are: water, sports drinks such as Gatorade or G2, or apple juice. You may NOT have: tube feedings, dairy products, alcoholic beverages, orange juice, or any liquids with solids or pulp in it If applicable, shower again with CHG soap the morning of your surgery. If you received a green plastic bracelet, bring it with you the day of surgery and your nurse will put it on you. What do I need to do to prepare for surgery? If you will be going home the same day as your surgery, arrange for an adult over [address] Riding in a bus or taxi by yourself is not permitted. You should not smoke or drink alcohol 24 hours before your surgery. Alcohol thins the blood and may cause bleeding problems during surgery. Smoking increases the risk of breathing problems after surgery. If you have been given a prescription for occupational, physical or speech therapy, please set up these appointments before your procedure. If you would like to schedule [facility], please call [address] [place] [address] ([phone]). Do not wear lotion, cream, powder, perfume, make up, cologne or after-shaves day of surgery. Remove ALL jewelry including wedding rings, body piercings,hair extensions that contain metal,make-up, and contact lens. You may brush your teeth the morning of surgery, but do not swallow the water. Wear your dentures and partial plates to the hospital (no adhesive). If applicable, the evening before surgery, shower with chlorhexidine gluconate (CHG soap). What should I bring to the hospital? If you received a green plastic bracelet, bring it with you the day of surgery and your nurse will put it on you. Eyeglass or contact lens case If you will be spending the night, please bring personal care items and leave them in the car until you are taken to your room after surgery. Leave ALL valuables at home. If any of these instructions conflict with those you recieved from the surgeon, please seek clarification from your surgeon's office. DEEP BREATHING EXERCISES This exercise helps promote good air exchange and helps to prevent pneumonia after surgery. Breathe in slowly and deeply through the nose. Hold your breath for a few seconds and then exhale slowly through the mouth. Repeat this three times and then cough.Coughing helps to clear your lungs. If you have had a surgery with an incision into your abdomen or chest, press gently against your incision with a pillow or a folded blanket when you cough. Please be aware - it may not be burt to cough following some types of surgeries involving the eyes, ears, sinuses and throat. Always follow your doctor's instructions. LEG EXERCISE These exercises help promote good circulation and help to prevent blood clots after surgery. Point your toes to the ceiling and then point them to the wall. Do this slowly about 15-20 times. You may also move your feet in circles. Do the exercise that is most comfortable for you. If you have had surgery involving your shoulder or arm, we recommend you move your fingers. PRACTICING We ask that you begin practicing these exercises before your surgery. After surgery try to do both exercises at least every 2 hours during the day and early evening. Surgical Site Infection Prevention What is a Surgical Site Infection? Infection can happen to the area of the body where surgery is done. This is called a surgical site infection (SSI). A SSI does not happen very often. Can SSIs be treated? Antibiotics are used to treat SSI. Some patients may need another surgery to treat the infection. The doctor will discuss treatment options with you. What are some of the things that hospitals are doing to prevent SSIs? Soap and water or alcohol hand rub are used before and after caring for each patient. Special soap is used to clean surgery workers hands and arms just before the surgery. Masks, gowns, gloves and hair covers are worn during the surgery to keep the area clean. Hair in the surgery area may be removed with clippers (not razors). A special soap that kills germs is used to clean the skin at the surgery site. Antibiotics may be given before the surgery starts. What can you do to prevent SSIs? Before surgery: You may be asked to shower or bathe with a special soap that kills germs the night before and the day of surgery. Use the soap as you were told. If you smoke, stop or cut down. Ask your doctor about ways to quit. Do not shave near where you will have surgery. Shaving can irritate the skin and make it easier to get and infection. After surgery: Be sure that the doctors and nurses clean their hands before and after touching you. Be sure your family and friends clean their hands before and after visiting you. Do not be afraid to remind them. * Care for your wound at home as told by your doctor or nurse * Call your doctor right away if you have fever, redness, increased pain, or drainage at the surgery site. Further questions? Contact the doctor, nurse or the Infection Prevention and Control department if you have any questions. PATIENT RIGHTS AND RESPONSIBILITIES As a patient at [facility], you have the right to: Receive medical care and be informed of who is taking care of you Be treated with dignity and respect Have a family member/account development representative of choice and your physician notified of your admission Receive information and actively participate in decisions about your care and treatment Refuse care, treatment and services Decide who may provide your support and speak for you Access mu-ism and spiritual services Participate in ethical issues and questions about your care Receive private and confidential care Have appropriate assessment and management of your pain Know guest visitation restrictions or limitations Have an advance directive Access protective services Consent or refuse to participate in research studies or production or recordings, films or other images Have resolution of your complaints Receive information of hospital charges and payment methods Patient/patient account development representative responsibilities are to: Provide information about health status to facilitate care, treatment and services Follow the treatment, plan, keep appointments and speak up when you do not understand the plan Respect the rights of other patients and healthcare personnel Follow organizational rules and regulations that support quality care and a safe environment Fulfill financial obligations as promptly as possible documented in this encounter [facility] Evaluation note Diagnosis Kidney stone- Primary Calculus of kidney [facility] on filedocumented in this encounter [facility] on filedocumented in this encounter [facility] Summary Purpose Family History No Family History Records FoundNo Family History Records FoundNo Family History Records Found Advance Directives No Advanced Directives Records FoundNo Advanced Directives Records FoundNo Advanced Directives Records Found Additional Source Comments INFORMATION SOURCE (unrecogn ized section and content) DATE CREATED AUTHOR 08/29/2017 [facility] DATE CREATED AUTHOR AUTHOR'S ORGANIZ ATION 10/15/2021 [facility] DATE CREATED AUTHOR AUTHOR'S ORGANIZ ATION 03/19/2023 [facility] Care Teams (unrecognized sec tion and content) [employer] Relationship Specialty Start Date End Date Asia Perrin MD [address] [place] [address] PCP - General Family Medicine 07/22/20 [employer] Relationship Specialty Start Date End Date Asia Perrin MD [address] [place] [address] PCP - General Family Medicine 07/22/20 [employer] Relationship Specialty Start Date End Date Asia Perrin MD [address] [place] [address] PCP - General Family Medicine 07/22/20 FOR RECORDS PERTAINING TO PATIENTS WHO ARE OR HAVE BEEN ENROLLED IN A CHEMICAL DEPENDENCY/SUBSTANCEABUSE PROGRAM, SOME INFORMATION MAY BE OMITTED. This clinical summary was aggregated from multiple sources. Caution should be exercised in using it in the provision of clinical care. This summary normalizes information from multiple sources, and as a consequence, information in this document may materially change the coding, format and clinical context of patient data. In addition, data may be omitted in some cases. CLINICAL DECISIONS SHOULD BE BASED ON THE PRIMARY CLINICAL RECORDS. [employer] [facility]. provides no warranty or guarantee of the accuracy or completeness of information in this document.
--- NOTE | 2023-11-15 07:40 | MR_ITS ---
The [address] [address] Patient Name: CHANEL LERNER MRN: [id number] date: 1975 Sex: F Assigned Patient Location: MRI Current Patient Location: MRI Accession/Order Number: [id number] Exam Date: 11/15/2023 07:50 Report Date: 11/15/2023 08:26 At the request of: ASIA PARRA Procedure: MR head/brain wo con EXAM: MR head/brain wo con HISTORY: Migraine G43.909 COMPARISON: None. TECHNIQUE: Multiplanar multisequence MR imaging of the brain was performed without intravenous contrast. FINDINGS: Calvarium/skull base: No focal marrow replacing lesion suggestive of neoplasm. Orbits: Grossly unremarkable. Paranasal sinuses: Small mucosal retention cysts involving the anterior left maxillary sinus. Brain: No restricted diffusion. No significant white matter disease. No mass effect, hemorrhage, or hydrocephalus. Grossly normal flow-related signal in the major intracranial arteries and dural sinuses. MR/MR head/brain wo con IMPRESSION: No acute intracranial process. Electronically authenticated by: KATHLEEN JAY Date: 11/15/2023 08:26
== END 2023-11-15 07:35 | disposition home or self-care (01) ==
LOC: MRI 07:34
PROVIDERS: PCP Family Medicine; Visit Provider Family Medicine
DX: G43.909 Migraine, unspecified, not intractable, without status migrainosus (principal)
CPT/HCPCS: 70551

== ENCOUNTER 2023-11-16 15:53 | Outpatient (OUT) | payer OTHER, SELFPAY ==
--- OUTSIDE RECORDS SUMMARY | 2023-11-16 16:02 | XMS_ITS | CCD ---
Author Organization [facility] Care Team Providers Care Energy Assistant Name Role Phone Dion Aguilar Unavailable Unavailable Dion Aguilar Unavailable Unavailable Dion Aguilar Unavailable Unavailable NONE, XXXX Unavailable Unavailable AIDA, DR BETANCOURT Attending Unavailable JOÃOY, DR BETANCOURT Consulting Unavailable JOÃOY, DR BETANCOURT Primary Care Unavailable HOY, DR BETANCOURT Admitting Unavailable HOY, DR BETANCOURT Consulting Unavailable AIDA, DR BETANCOURT Primary Care Unavailable AIDA, DR BETANOCURT Admitting Unavailable AIDA, DR BETANCOURT Attending Unavailable AIDA, DR BETANCOURT Consulting Unavailable AIDA, DR BETANCOURT Primary Care Unavailable HOY, DR BETANCOURT Admitting Unavailable AIDA, DR BETANCOURT Attending Unavailable Asia Perrin MD Primary Care Provider [phone] ASHUTOSH HARVEY Admitting Unavailable ASHUTOSH HARVEY Attending Unavailable ASHUTOSH HARVEY Referring Unavailable ASIA PERRIN Primary Care Unavailable ASHUTOSH HARVEY Attending Unavailable ASHUTOSH HARVEY Referring Unavailable ASIA PERRIN Primary Care Unavailable CHER CALDERON Attending Unavailable ASIA PERRIN Primary Care Unavailable Allergies Allergy Classification Reported Allergen(s) Allergy Type Date of Onset Reaction(s) Facility (1 source) No Known Medication Allergies; Translations: [No Known Medication Allergies] Propensity to adverse reactions (disorder) [facility] Repository Medications Current Medications Medication [...] Phillips MD on 03/17/2023 4:17 PM Normal [facility] URINE CULTUREon 02-17-2023 Bacteria identified Cx Nom (U) CULTURE RESULTS >100,000 ORGANISMS/ML NORMAL UROGENITAL ARINA Normal [facility] Comment on above: Performed By: #### 6 30-4 #### [facility] ([id number]) [address] [place] [address] [address] [place] [address] Covid-19 PCR (CVDTBH)on 10-04 SARS-CoV-2 (COVID-19) RNA JAVIER+probe Ql (Unsp spec) Detected Critically abnormal NOT DETECTED [facility] Comment on above: Result Comment: This test is not yet approved or cleared by the [place] FDA. When there are no FDA-approved or cleared tests available, and other criteria are met, FDA can make tests available under an emergency access mechanism called an Emergency Use Authorization (EUA). The EUA for this test is supported by the [place] of Health and Human Service's (HHS's) declaration [...] used). Performed By: #### C VDTBH #### [facility] [address] [place] [address] Dr. Masha Ye Covid-19 PCR (CVDTBH)on 03-06 SARS-CoV-2 (COVID-19) RNA JAVIER+probe Ql (Unsp spec) Detected Critically abnormal NOT DETECTED [facility] Comment on above: Result Comment: This test is not yet approved or cleared by the [place] FDA. When there are no FDA-approved or cleared tests available, and other criteria are met, FDA can make tests available under an emergency access mechanism called an Emergency Use Authorization (EUA). The EUA for this test is supported by the [place]p [place] of Health and Human Service's (HHS's) declaration [...] used). Performed By: #### C VDTBH #### [facility] [address] [place] [address] Dr. Masha Ye INFLUENZA A AND B AGon 03-17 INFLUENZA A AG Negative Normal NEGATIVE SEE COMMENT [facility] Comment on above: Performed By: #### I NFLUAB #### [facility] [address] [place] [address] Dr. Masha Ye INFLUENZA B AG Negative Normal NEGATIVE SEE COMMENT [facility] Comment on above: Performed By: #### I NFLUAB #### [facility] [address] [place] [address] Dr. Masha Ye INTERNAL CONTROLS Within Normal Limits Normal Wi thin Normal Limits [facility] Comment on above: Performed By: #### I NFLUAB #### [facility] [address] [place] [address] Dr. Masha Ye Covid-19 PCR ([facility])on 12-05 SARS-CoV-2 (COVID-19) RNA JAVIER+probe Ql (Unsp spec) Not detected Normal NOT DETECTED [facility] Comment on above: Result Comment: This test is not yet approved or cleared by the [place] FDA. When there are no FDA-approved or cleared tests available, and other criteria are met, FDA can make tests available under an emergency access mechanism called an Emergency Use Authorization (EUA). The EUA for this test is supported by the Vp Lab of Health and Human Service's (HHS's) declaration [...] SARS-CoV-2. Performed By: #### C VDTB #### [facility] [address] [place] [address] Dr. Masha Ye SYMPTOMATIC COVID-19 ANTIGEN on [...] sooner. Performed By: #### C VDAGS #### [facility] [address] [place], [place] [id number] Dr. Masha Ye SARS-CoV-2 (COVID-19) RNA JAVIER+probe Ql (Unsp spec) Negative Normal NEGATIVE [facility] Comment on above: Result Comment: CONF IRMATION BY PCR PENDING PER CDC GUIDELINES/ SYMPTOMATIC PATIENT. Performed By: #### C VDAGS #### [facility] [address] [place], [place] [address] Dr. Masha Ye Coding Summary.on 02-01-2017 Coding Summary. CODING DATE: 02/01/2017 FINAL [facility] STATUS: Home (Routine DC) PAYOR: Self [...] Jacobs Date Saved: 02/01/2017 04:42 pm Normal [facility] Main OR Intraoperative Recor don 01-31-2017 Main OR Intraoperative Record IntraOp Document Type FTURO Summary Primary Physician: Dion Aguilar MD Finalized Date/Time: 01/31/17 16:44:48 Pt. Name: CHANEL HOPKINS Johan /Sex: 1975 Female Med Rec #: [id number] Physician: Dion Aguilar MD Financial #: [id number] Pt. Type: O Room/Bed: / Admit/Disch: 01/31/17 15:23:26 - Institution: Case Times FTURO Entry 1 Patient Times In Room 01/31/17 16:36:00 Out Room 01/31/17 16:50:00 Procedure Times Start 01/31/17 16:41:00 Stop 01/31/17 16:45:00 Anesthesia Times Last Modified By: Mavis RODRIGUEZ, Lydia WARNER 01/31/17 16:44:42 Case Attendance FTURO Entry 1 Entry 2 Entry 3 Case Attendee Mavis RODRIGUEZ, ROLANDOR, [facility], Angie Aguilar MD, Dion Freeman Role Performed Manager Landscape - Primary Scrub - Primary Surgeon - [...] ALANA Gamble RN, Ruthann 01/31/17 16:44 Normal [facility] Main OR Preoperative Recordo n 01-31-2017 Main OR Preoperative Record Holding Area Document Type FTURO Summary Primary Physician: Dion Aguilar MD Finalized Date/Time: 01/31/17 16:43:04 Pt. Name: CHANEL HOPKINS Johan Sparks/Sex: 1975 Female Med Rec #: [id number] Physician: Dion Aguilar MD Financial #: [id number] Pt. Type: O Room/Bed: / Admit/Disch: 01/31/17 [...] Comment: Started Menses (4) Skin Integrity Intact, Omega, Warm, & Dry Vitals - EU Blood Pressure 118/78 Pulse 80 bpm Respirations 16 br/min SPO2 Additional None RN Reviewed Yes Specimens Collected Last Modified By: ALANA Gamble RN, Ruthann 01/31/17 16:43:03 Finalized By: ALANA Gamble RN, Ruthann Document Signatures Signed By: Salima Villegas 01/31/17 15:48 Mavis RODRIGUEZ, Ldyia WARNER 01/31/17 16:43 Normal [facility] Operative Reporton Operative Report Patient: [...] metabolic w/u and 3 month f/u. Normal [facility] Comment on above: Result Comment: Elec tronically Signed By: Dion Aguilar MD\.br\Date and Time Signed: 01/31/17 16:48 EST Encounters Encounter Date Encounter Type Care Provider Facility Start: 06-08-2023 [facility] Start: 03-23-2023 Telephone encounter Guillermina Corado [facility] Start: 03-18-2023 End: 03-18-2023 Evaluation and management of inpatient [facility] Start: 03-17-2023 End: 03-18-2023 ambulatory ASHUTOSH HARVEY [facility] Start: 03-17-2023 End: 03-17-2023 Evaluation and management of inpatient ASHUTOSH HARVEY [facility] Start: 03-17-2023 Telephone encounter Ashutosh Harvey MD Work Phone: [facility] Start: 03-13-2023 End: 03-13-2023 Admission to [facility] Start: 03-13-2023 End: 03-13-2023 ambulatory [facility] Phone Call Provider 3 [facility] Start: 10-14-2021 End: 10-14-[address] ASIA PERRIN Facility:[facility] Start: 03-17-2021 End: 03-17-[address] ASIA PERRIN Facility:[facility] Start: 12-28-2020 End: 12-28-[address] ASIA PERRIN Facility:[facility] Start: 01-31-2017 End: 02-01-2017 Ambulatory Dion Aguilar Facility[facility] Plan of Treatment Date Care Activity Detail Author Start: 03-17-2024 Adult BMI Screening Adult BMI Screen ing [facility] Start: 03-17-2024 Tobacco Screening Tobacco Screening [facility] Start: 02-18-2024 Adult BMI Screening Adult BMI Screen ing [facility] Start: 02-18-2024 Tobacco Screening Tobacco Screening [facility] Start: 11-05-2023 Influenza vaccination Influenza Vacc ine [facility] Start: 03-27-2023 End: 03-27-2023 ambulatory 03/27/2023 3:30 PM EST Support Visit [facility] [address] [place] [phone] [facility] Start: 03-17-2023 End: 03-17-2023 Admission to same day surgery center 03/17/2023 3:15 PM EST - 03/17/2023 4:30 PM EST Surgery [facility] Ambulatory Surgery A Division of [facility] - Surgery [address] [facility] [address] [place] [phone] Ashutosh Harvey MD [address] [place] [id number] LASER HOLMIUM URETEROSCOPY RENAL STONES < OR=1CM [60599 (CPT )] [facility] Surgery A Division [facility] Comment on above: LASER HOLMIUM URETER OSCOPY RENAL STONES < OR=1CM [17119 (CPT )] Start: 03-17-2023 End: 03-17-2023 Anesthesia consultation 03/17/2023 3:15 PM EST Anesthesia Event [facility] Surgery A Division [address] [place] [phone] Cher Calderon DO [address] [place] [address] [facility] Surgery A Division [facility] Start: 03-17-2023 End: 03-17-2023 Cysto w/insert ureteral stent CYSTOSCOPY INSERTION STENT URETER Kidney stone 03/17/2023 3:15 PM EST [facility] [place] [facility] Start: 03-17-2023 End: 03-17-2023 Cysto w/ureteroscopy w/lithotripsy LASER HOLMIUM URETEROSCOPY RENAL STONES < OR=1CM Kidney stone 03/17/2023 3:15 PM EST [facility] [place] [facility] Start: 03-17-2023 Subsequent hospital visit by physician 03/17/2023 3:15 PM EST Hospital Encounter [facility] Surgery A [address] [place] [phone] Ashutosh Harvey MD [address] [place] [address] [facility] Surgery A [facility] Start: 11-04-2022 Influenza vaccination Influenza Vacc ine [facility] Start: 1997 Screening for malign ant neoplasm of cervix Pap Smear [facility] Start: 05-23-1995 DTaP,Tdap and Td Vaccines (1 - Tdap) DTaP,Tdap and Td Vaccines (1 - Tdap) [facility] Start: 1994 Adult BMI Follow Up Plan Adult [facility] Start: 1988 Depression Screening [facility]ing [facility] End: 03-16-2024 [facility] 48 Hour [facility] 48 Hour Lab Routine Kidney stone 1 Occurrences starting 03/17/2023 until 03/16/2024 [facility] Work Phone: Comment on above: 1 Occurrences starti ng 03/17/2023 until 03/16/2024 Payers Date Payer Category Payer Private Health Insurance [facility] [employer] [id number] 2022-Present [phone] [address] [address] [place] [address] [id number] 2022 Unknown [id number] 2017 Self-pay 1975 Unknown [id number] 1975 Unknown [id number] 1975 Unknown [id number] 1975 Unknown [id number] [id number] 1975 Unknown [id number] [id number] 1975 Unknown [id number] [id number] 1975 Unknown [id number] 1959 Unknown [id number] Social History Date Type Detail Facility Start: 08-18-2020 Tobacco smoking stat us NHIS Never smoked tobacco [facility] Start: 08-18-2020 Tobacco use and exposure Smoke less tobacco non-user [facility] Start: 02-17-2023 End: 03-18-2023 Alcohol intake Current drinker of alcohol (finding) [facility] Start: 08-15-2018 End: 02-17-2023 History of Social function [facility] Start: 08-15-2018 End: 02-17-2023 Tobacco use panel [facility] Housing Instability Unknown [facility] Start: 1975 Sex Assigned At Not on file P [facility] Start: 03-17-2023 Alcohol Comment month [facility] Medical Equipment Procedure Code Equipment Code Equipment Origin al Text Equipment Identifier Dates Stent Uret 6fr 2 2cm 2 Pgtl Crv Rdpq Pstnr Brd Teth Rpl [id number] - [id number] Start: 03-17-2023 Clinical Notes 03-13-2023 to 06-08-2023 Telephone Encounter - Nicole Aviles - 06/08/2023 9:04 AM EDTTelephone Encounter - Nicole Aviles - 06/08/2023 9:04 AM EDTTelephone Encounter - Guillermina Corado [facility] - 03/23/2023 8:58 AM EST Note Date & Type Note Facility 06-08-2023 Miscellaneous Notes Called pt to r/s appt from 06/09/[address] Harvey, pt cancelled. LVM and asked her to call back at [phone] documented in this encounter [facility] 06-08-2023 Telephone encounter Note Called pt to r/s appt from 06/09/[address] Harvey, pt cancelled. LVM and asked her to call back at [phone] [facility] 03-23-2023 Miscellaneous Notes Pt was [...] she does not live close, maybe around [facility]. Pt will come to office , and I can remove. (Pt does not want to do it) Is Piper in the office today? Isn't she closer than us? I am not sure. Not overly familiar with the area documented in this encounter [facility] 03-23-2023 Telephone encounter Note Pt was taking shower and her washcloth snagged her string/stent. She was doing ok, but now notices leakage and increase discomfort. Please advise. Pt states that plan was to remove it on Monday [facility] 03-23-[address] Harvey had requested she be seen yesterday to have stent removed so I think it is ok to remove it if she can. Otherwise, she can come here to have it removed. I know she does not live close, maybe around [facility]. [facility] 03-23-2023 Telephone encounter Note Pt will come to office , and I can remove. (Pt does not want to do it) [facility] 03-23-2023 Telephone encounter Note Is Piper in the office today? Isn't she closer than us? I am not sure. Not overly familiar with the area [facility] 03-17-2023 Miscellaneous Notes Can you schedule her to get her stent out in the office next Monday Additionally should get information for litho link x2 and a follow-up to review those results in about 8-12 weeks Called pt and lvm to schedule in 8-12 weeks. I will fax a request to [employer] for her to get a kit. documented in this encounter [facility] [facility] 03-17-2023 Telephone encounter Note Can you schedule her to get her stent out in the office next Monday Additionally should get information for litho link x2 and a follow-up to review those results in about 8-12 weeks [facility] 03-17-2023 Telephone encounter Note Called pt and lvm to schedule in 8-12 weeks. I will fax a request to [facility] for her to get a kit. [facility] 01-08-2024 Instructions Formatting of th is note might be different from the original. Your Procedure/Surgery is scheduled at [facility] on 03/17/22 [facility], [address] [place] [address] You will receive a phone call from [facility] the day before your surgery to verify your arrival time. If you have any questions prior to your surgery, please call Pre-Admission Clinic at [phone] between 7:30 am and 4:30 pm Monday through Monday. For questions the day of surgery, please call the Pre-op Department at [phone]. IF YOU DO NOT FOLLOW THESE INSTRUCTIONS [...] would like to schedule therapy at a [facility] Rehab facility, please call [phone] ([phone]). Do not wear lotion, cream, powder, perfume, [...] RIGHTS AND RESPONSIBILITIES As a patient at [facility], you have the right to: Receive medical care and be informed of who is taking care of you Be treated with dignity and respect Have a family member/communications representative of choice and your physician notified of your admission Receive information and actively participate in decisions about your care and treatment Refuse care, treatment and services Decide who may provide your support and speak for you Access restorationism and spiritual services Participate in ethical issues [...] of hospital charges and payment methods Patient/patient communications representative responsibilities are to: Provide information about health status to facilitate care, treatment and services Follow the treatment, plan, keep appointments and speak up when you do not understand the plan Respect the rights of other patients and healthcare personnel Follow organizational rules and regulations that support quality care and a safe environment Fulfill financial obligations as promptly as possible [facility] 03-13-2023 Miscellaneous Notes Your Procedure/Surgery is scheduled at [facility] on 03/17/22 [place] [address] You will receive a phone call from [facility] the day before your surgery to verify your arrival time. If you have any questions prior to your surgery, please call Pre-Admission Clinic at [phone] between 7:30 am and 4:30 pm Monday through Monday. For questions the day of surgery, please call the Pre-op Department at [phone]. IF YOU DO NOT FOLLOW THESE INSTRUCTIONS [...] [facility], please call [address] [place] [address] ([phone]). Do not wear lotion, cream, powder, perfume, [...] RIGHTS AND RESPONSIBILITIES As a patient at [facility], you have the right to: Receive medical care and be informed of who is taking care of you Be treated with dignity and respect Have a family member/communications representative of choice and your physician notified of your admission Receive information and actively participate in decisions about your care and treatment Refuse care, treatment and services Decide who may provide your support and speak for you Access restorationism and spiritual services Participate in ethical issues [...] of hospital charges and payment methods Patient/patient communications representative responsibilities are to: Provide information about [...] promptly as possible documented in this encounter [facility] Evaluation note Diagnosis Kidney stone- Primary Calculus of kidney documented in this encounter [facility] on filedocumented in this encounter [facility] SystemInstructionsNot on filedocumented in this encounter [facility] SystemInstructionsNot on filedocumented in this encounter [facility] Summary Purpose Family History No Family History Records FoundNo Family History Records FoundNo Family History Records Found Advance Directives No Advanced Directives Records FoundNo Advanced Directives Records FoundNo Advanced Directives Records Found Additional Source Comments INFORMATION SOURCE (unrecogn ized section and content) DATE CREATED AUTHOR 08/29/2017 [facility] DATE CREATED AUTHOR AUTHOR'S ORGANIZ ATION 10/15/2021 [facility] DATE CREATED AUTHOR AUTHOR'S ORGANIZ ATION 03/19/2023 [facility] Care Teams (unrecognized sec tion and content) Energy Assistant Relationship Specialty Start Date End Date Asia Perrin MD [address] [place] [address] PCP - General Family Medicine 07/22/20 Energy Assistant Relationship Specialty Start Date End Date Asia Perrin MD [address] [place] [address] PCP - General Family Medicine 07/22/20 Energy Assistant Relationship Specialty Start Date End Date Asia Perrin MD [address] [place] [address] PCP - General Family Medicine 07/22/20 FOR [...] BE BASED ON THE PRIMARY CLINICAL RECORDS. [employer] [facility]. provides no warranty or guarantee of the accuracy or completeness of information in this document.
[2023-11-16 16:11] LABS: Basophils Absolute Auto 0.1 10^3/uL (0.0-0.1); Basophils Percent Auto 1.1 % (0.2-2.0); Eosinophils Absolute Auto 0.3 10^3/uL (0.0-0.7); Eosinophils Percent Auto 4.1 % (0.9-7.0); Hemoglobin 15.1 g/dL (12.0-16.0); Immature Granulocytes Abs Auto 0.03 10^3/uL (0.00-0.03); Immature Granulocytes Pct Auto 0.5 % (0.0-0.5); Lymphocytes Absolute Auto 2.3 10^3/uL (1.2-3.8); Lymphocytes Percent Auto 35.6 % (20.5-60.0); Mean Corpuscular HGB Conc 34.3 g/dL (29.9-35.2); Mean Corpuscular Hemoglobin 30.9 pg (26.7-34.0); Mean Platelet Volume 11.3 fL (9.5-13.5); Monocytes Absolute Auto 0.6 10^3/uL (0.3-0.8); Monocytes Percent Auto 8.9 % (1.7-12.0); Neutrophils Absolute Auto 3.3 10^3/uL (1.4-6.5); Neutrophils Percent Auto 49.8 % (43.0-75.0); Platelet Count 236 10^3/uL (150-450); Red Blood Count 4.89 10^6/uL (4.20-5.40); Red Cell Distribution Width 12.2 % (11.0-15.0); White Blood Count 6.5 10^3/uL (4.0-11.0)
[2023-11-16 16:14] LABS: Bilirubin Urine NEGATIVE (NEGATIVE); Blood Urine NEGATIVE (NEGATIVE); Clarity Urine CLEAR (CLEAR); Color Urine LT. YELLOW (YELLOW); Glucose Urine UA NEGATIVE (NEGATIVE); Ketones Urine NEGATIVE (NEGATIVE); Leukocyte Esterase Urine NEGATIVE (NEGATIVE); Nitrite Urine POSITIVE (NEGATIVE); Protein Urine NEGATIVE (NEG/TRACE); Specific Gravity Urine 1.015 (1.005-1.025); Urobilinogen Urine 0.2 EU/dL (0.2-1.0); pH Urine 6.5 (5.0-9.0)
[2023-11-16 16:21] LABS: Bacteria Urine MODERATE #/HPF (NONE SEEN); Cast Seen? NONE SEEN #/LPF (NONE SEEN); Crystals Seen? None Seen #/HPF (None Seen); Mucus Urine NONE SEEN (NONE SEEN); RBC Urine NONE SEEN #/HPF (0-2); Squamous Epithelial Cell Urine RARE #/LPF (NONE/RARE); Urine Culture Indicated YES; WBC Urine 0-2 #/HPF (NONE SEEN)
[2023-11-16 16:42] LABS: Estimated Average Glucose 108 mg/dL; Glycohemoglobin A1C 5.4 % (4.5-6.2)
[2023-11-16 17:12] LABS: Alanine Aminotransferase 104 U/L (14-59); Albumin Globulin Ratio 1.1; Albumin Level 3.7 g/dL (3.4-5.0); Alkaline Phosphatase 106 U/L (46-116); Anion Gap 9.9; Aspartate Amino Transferase 48 U/L (15-37); BUN Creatinine Ratio 17.3; Bilirubin Total 0.6 mg/dL (0.2-1.0); Chloride 106 mmol/L (98-107); Chol HDL Ratio 4.1; Cholesterol 237 mg/dL (<=200); Estimated GFR (African America >60 (>=60); Estimated GFR (Non-African Ame >60 (>=60); Free T3 3.19 pg/mL (2.18-3.98); Globulin 3.5 g/dL; Glucose 90 mg/dL (74-106); HDL Cholesterol 58 mg/dL (40-60); Potassium 3.9 mmol/L (3.5-5.1); Sodium 143 mmol/L (136-145); Thyroid Stimulating Hormone 2.474 uIU/mL (0.358-3.740); Total Protein 7.2 g/dL (6.4-8.2); Triglycerides 109 mg/dL (<=150); VLDL CHOLESTEROL 21.8 mg/dL
[2023-11-18 04:10] LABS: Insulin 15.3 uIU/mL (2.6-24.9)
== END 2023-11-16 15:54 | disposition home or self-care (01) ==
LOC: LAB 15:53
PROVIDERS: PCP Family Medicine; Visit Provider Family Medicine
DX: Z00.00 Encounter for general adult medical examination without abnormal findings (principal)
CPT/HCPCS: 36415; 80053; 80061; 81001; 83001; 83036; 83525; 84436; 84443; 84481; 85025; 87086